=== PATIENT | female | born 1965 | race Caucasian/White ===

== ENCOUNTER 2017-03-13 09:50 | Emergency (ER) | payer MEDICARE, OTHER ==
[~2017-03-13] VITALS: Ht 165.1 cm; Wt 78.0 kg
[2017-03-13 10:07] VITALS: BP 126/65
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
[2017-03-13 11:12] VITALS: BP 126/65
--- NOTE | 2017-03-13 11:12 | NUR ---
Patient discharged with v/s stable. Written and verbal after care instructions given and explained. Patient verbalized understanding. Ambulatory with steady gait. All questions addressed prior to discharge. Advised to follow up with PMD.
== END 2017-03-13 11:12 | disposition home or self-care (01) ==
LOC: MED 09:50
DX: S60.031A Contusion of right middle finger without damage to nail, initial encounter (principal); W23.0XXA Caught, crushed, jammed, or pinched between moving objects, initial encounter; Y93.89 Activity, other specified; Y92.89 Other specified places as the place of occurrence of the external cause; Y99.8 Other external cause status
CPT/HCPCS: 73130; 99284

== ENCOUNTER 2021-06-10 00:44 | Emergency (ER) | payer BC, OTHER ==
[~2021-06-10] VITALS: Ht 162.6 cm; Wt 74.8 kg
[2021-06-10 01:04] VITALS: BP 120/85
--- NOTE | 2021-06-10 01:07 | NUR ---
to lobby a/w bed ambulatory
--- NOTE | 2021-06-10 02:03 | NUR ---
PT CLEARED FOR DISCHARGE DR. CUHNA. THIS RN LOOKED FOR PATIENT IN LOBBY AND OUTSIDE WITH NO ANSWER. PT LEFT WITHOUT DISCHARGE INSTRUCTIONS.
== END 2021-06-10 02:03 | disposition home or self-care (01) ==
LOC: MED 00:44
DX: J18.9 Pneumonia, unspecified organism (principal)
CPT/HCPCS: 99281